=== PATIENT | male | born 1950 | race African-American/Black ===

== ENCOUNTER → 2025-06-20 | Outpatient (CLI) | payer MEDICARE, MEDICAID, SELFPAY ==
--- NOTE | 2025-06-20 09:03 | RAD_ITS ---
PROCEDURE: LUMBAR SPINE 2 OR 3 VIEWS 06/20/2025 REASON FOR EXAM: DDD TECHNIQUE: Procedure Code: RADSPLL Modality: DX Procedure: LUMBAR SPINE 2 OR 3 VIEWS FINDINGS: No evidence of acute fracture or dislocation. Severe discogenic degenerative changes at L5-S1. Mild discogenic degenerative changes of the other visualized levels. Grade 1 anterolisthesis of L5 on S1. RAD/Lumbar Spine 2 or 3 Views IMPRESSION: Spondylosis. Spondylolisthesis. Reading Location: [id number]
--- NOTE | 2025-06-20 09:03 | RAD_ITS ---
PROCEDURE: CERV SPINE 2 OR 3 VIEWS 06/20/2025 REASON FOR EXAM: DDD TECHNIQUE: Procedure Code: RADSPCL Modality: DX Procedure: CERV SPINE 2 OR 3 VIEWS FINDINGS: No evidence acute fracture or dislocation. Severe discogenic degenerative changes of the mid/lower cervical spine. Straightening of the normal cervical lordosis. Vertebral body heights are maintained. RAD/Cerv Spine 2 or 3 Views IMPRESSION: Spondylosis. Disclaimer: Reading Location: [id number]
== END | disposition home or self-care (01) ==
PROVIDERS: Referring Provider Anesthesiology Pain Medicine; Visit Provider Anesthesiology Pain Medicine
DX: M50.30 Other cervical disc degeneration, unspecified cervical region (principal); M51.369 Other intervertebral disc degeneration, lumbar region without mention of lumbar back pain or lower extremity pain
CPT/HCPCS: 72040; 72100